=== PATIENT | female | born 1970 | race Hispanic/Latino ===

== ENCOUNTER → 2018-09-18 | Outpatient (CLI) | payer BC ==
[~2018-09-18] MED LIST: MIDAZOLAM HCL 1 MG/ML 2ML VIAL ONE
--- NOTE | 2018-09-18 09:53 | NUR ---
MRI LT SHOULDER WITH CONSCIOUS SEDATION PATIENT TOLERATED PROCEDURE WELL. HEPLOCK REMOVED AND PATIENT RECOVERED IN RADIOLOGY ROOM. DISCHARGE INSTRUCTIONS GIVEN AND VERBALIZED UNDERSTANDING. DISCHARGED VIA AMBULATION AT 0930. AAO X3 WITH NO C/O DISCOMFORT.
== END | disposition home or self-care (01) ==
LOC: RAH 07:31
PROVIDERS: ATTEND Physical Medicine & Rehabilitation
DX: M75.112 Incomplete rotator cuff tear or rupture of left shoulder, not specified as traumatic (principal); M19.012 Primary osteoarthritis, left shoulder
CPT/HCPCS: 73221; J2250; 99152; 99153

== ENCOUNTER → 2024-06-24 | Outpatient (CLI) | payer OTHER ==
[2024-06-24 14:53] LABS: ABG BASE EXCESS 0.6 mmol/L (-2.0-3.0); ABG HCO3 24.8 mmol/L (21.0-28.0); ABG OXYGEN SATURATION 96.8 % (94.0-98.0); ABG PCO2 38 mmHg (32-45); ABG PH 7.428 (7.350-7.450); DEVICE COMMENT RR ROOM AIR; PO2, ARTERIAL BG 86.6 mmHg (83.0-108.0)
== END | disposition home or self-care (01) ==
LOC: LAB 14:15
PROVIDERS: ATTEND Internal Medicine Cardiovascular Disease
DX: G47.33 Obstructive sleep apnea (adult) (pediatric) (principal)
CPT/HCPCS: 36600; 82803

== ENCOUNTER → 2024-07-23 | Outpatient (CLI) | payer OTHER | END | disposition home or self-care (01) | LOC: SHCH 15:11 | PROVIDERS: ATTEND Internal Medicine Cardiovascular Disease | DX: I10 Essential (primary) hypertension (principal) | CPT/HCPCS: 93306 ==